=== PATIENT | female | born 1995 | race African-American/Black ===

== ENCOUNTER 2017-07-14 09:03 | Emergency (ER) | payer OTHER ==
[2017-07-14 09:53] LABS: Urine Blood 2+ (NEG); Urine Glucose NEGATIVE (NEG); Urine Protein NEGATIVE (NEG)
[2017-07-14 09:58] LABS: BUN Blood Urea Nitrogen 8 mg/dL (6-20); Bicarbonate 24 mEq/L (21-31); Glucose Level 89 mg/dL (65-120); Potassium 3.5 mEq/L (3.6-5.0); Sodium Level 134 mEq/L (135-145)
[2017-07-14 09:59] LABS: Absolute Lymphocytes (CBC) 2.1 K/uL (0.7-4.9); Absolute Monocytes 0.4 K/uL (0.1-1.3); Absolute Neutrophil 6.2 K/uL (1.8-8.0); Basophils % 0.2 % (0-1.3); Eosinophils % 0.8 % (0-4.4); Hematocrit 39.1 % (36.0-45.0); Lymphocytes % 24.1 % (15.3-44.8); MCV 90.5 fL (80-100); MPV 10.6 fL (7.6-11.3); Monocytes % 4.7 % (3.3-12.3); RBC Red Blood Cell Count 4.32 M/uL (3.86-4.86)
--- NOTE | 2017-07-14 10:57 | ER ---
Nurse's Notes [facility] Name: Vinita Lomeli Age: 22 yrs Sex: Female : 1995 Arrival Date: 07/14/2017 Time: 09:06 Bed 15 Private MD: Diagnosis: Threatened Presentation: 07/14 09:37 Presenting complaint: Patient states: Patient states she has hx of miscarrying and is ae1 now reporting dark brown vaginal bleeding, mostly upon wiping. Transition of care: patient was not received from another setting of care. Onset of symptoms was July 14, 2017 at 09:00. Care prior to arrival: None. 09:37 Acuity: TORITO 3 ae1 09:37 Method Of Arrival: Ambulatory ae1 11:53 Initial Sepsis Screen: Does the patient meet any 2 criteria? No. Patient's initial iw sepsis screen is negative. Does the patient have a suspected source of infection? No. Patient's initial sepsis screen is negative. Triage Assessment: 09:41 General: Appears in no apparent distress. comfortable, well groomed. General: Behavior ae1 is calm, cooperative. Pain: Denies pain. Respiratory: Airway is patent Respiratory effort is even, unlabored, Respiratory pattern is regular, symmetrical. : Reports vaginal bleeding that is brown, Upon wiping. 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 - Social history:: Smoking status: Patient/guardian denies using tobacco. Screenin:40 Abuse screen: Denies threats or abuse. Nutritional screening: No deficits noted. ae1 Tuberculosis screening: No symptoms or risk factors identified. Fall Risk None identified. 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 ae1 11:53 Obstetrical Assessment: General assessment: awake and alert, skin warm and dry. iw Reassessment: Patient appears in no apparent distress at this time. Patient and/or family updated on plan of care and expected duration. Pain level reassessed. Patient is alert, oriented x 3, equal unlabored respirations, skin warm/dry/pink. Patient states feeling better. Patient states symptoms have improved. Vital Signs: 09:26 BP 118 / 63; Pulse 89; Resp 18; Temp 99.2(O); Pulse Ox 100% on R/A; Weight 89.81 kg ae1 (R); Pain 0/10; 10:07 BP 100 / 64; Pulse 81; Resp 16; Pulse Ox 98% on R/A; ae1 Vitals: 11:53 Heart Tones n/a. iw ED Course: 09:06 Patient arrived in ED. rg4 09:09 Salvatore Kincaid RN is Primary Nurse. ae1 09:10 Claude Romeo PA is PHCP. jr8 09:10 Baldo Garvey MD is Attending Physician. jr8 09:27 Inserted saline lock: 20 gauge in right antecubital area, using aseptic technique. ae1 Blood collected. 09:39 Triage completed. ae1 09:39 Arm band placed on right wrist. ae1 09:40 Placed in gown. Bed in low position. Call light in reach. Side rails up X 1. Pulse ox ae1 on. NIBP on. Warm blanket given. 10:11 Note: us done portable. hr 10:13 US Transvaginal Ob In Process Unspecified. EDMS 11:53 No provider procedures requiring assistance completed. IV discontinued, intact, iw bleeding controlled, No redness/swelling at site. Pressure dressing applied. Administered Medications: No medications were administered Point of Care Testing: Urine : 10:07 hCG Reading: Positive; ae1 Outcome: 10:56 Discharge ordered by . randolph 11:53 Discharged to home ambulatory. iw 11:53 Condition: good 11:53 Discharge instructions given to patient, Instructed on discharge instructions, follow up and referral plans. Demonstrated understanding of instructions, follow-up care. 11:54 Patient left the ED. iw Signatures: Dispatcher [employer] EDMS Simran Wang hr Maribel Becker RN RN Claude Romeo PA PA jrSalvatore Omalley RN RN ae1 Mica Martin rg4
--- NOTE | 2017-07-14 10:57 | EDPHYS ---
Physician Documentation [facility] Name: Vinita Lomeli Age: 22 yrs Sex: Female : 1995 Arrival Date: 07/14/2017 Time: 09:06 Bed 15 Private MD: ED Physician Baldo Garvey HPI: 07/14 09:29 This 22 yrs old Black Female presents to ER via Unassigned with complaints of Vaginal jr8 Bleeding, + Preg <12wks. 09:29 The patient presents to the emergency department with vaginal bleeding, that is light, jr8 with clots. The estimated gestational age is 10 weeks. course: care: private OB physician. Previous pregnancies: in previous pregnancies patient has had. Associated signs and symptoms: The patient has no apparent associated signs or symptoms. The patient has experienced similar episodes in the past, a few times. The patient has not recently seen a physician. Stated that she started with light spotting yesterday. Today had heavier bleeding with clots. History of spontaneous in past . 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 - Social history:: Smoking status: Patient/guardian denies using tobacco. ROS: 09:29 Eyes: Negative for injury, pain, redness, and discharge, ENT: Negative for injury, jr8 pain, and discharge, Neck: Negative for injury, pain, and swelling, Cardiovascular: Negative for chest pain, palpitations, and edema, Respiratory: Negative for shortness of breath, cough, wheezing, and pleuritic chest pain, Abdomen/GI: Negative for abdominal pain, nausea, vomiting, diarrhea, and constipation, Back: Negative for injury and pain, MS/Extremity: Negative for injury and deformity, Skin: Negative for injury, rash, and discoloration, Neuro: Negative for headache, weakness, numbness, tingling, and seizure. 09:29 : Positive for vaginal bleeding, Negative for urinary symptoms, pelvic pain, vaginal discharge, vaginal itching. Exam: :29 Eyes: Pupils equal round and reactive to light, extra-ocular motions intact. Lids and jr8 lashes normal. Conjunctiva and sclera are non-icteric and not injected. Cornea within normal limits. Periorbital areas with no swelling, redness, or edema. ENT: Nares patent. No nasal discharge, no septal abnormalities noted. Tympanic membranes are normal and external auditory canals are clear. Oropharynx with no redness, swelling, or masses, exudates, or evidence of obstruction, uvula midline. Mucous membranes moist. Neck: Trachea midline, no thyromegaly or masses palpated, and no cervical lymphadenopathy. Supple, full range of motion without nuchal rigidity, or vertebral point tenderness. No Meningismus. Cardiovascular: Regular rate and rhythm with a normal S1 and S2. No gallops, murmurs, or rubs. Normal PMI, no JVD. No pulse deficits. Respiratory: Lungs have equal breath sounds bilaterally, clear to auscultation and percussion. No rales, rhonchi or wheezes noted. No increased work of breathing, no retractions or nasal flaring. Abdomen/GI: Soft, non-tender, with normal bowel sounds. No distension or tympany. No guarding or rebound. No evidence of tenderness throughout. Back: No spinal tenderness. No costovertebral tenderness. Full range of motion. Skin: Warm, dry with normal turgor. Normal color with no rashes, no lesions, and no evidence of cellulitis. MS/ Extremity: Pulses equal, no cyanosis. Neurovascular intact. Full, normal range of motion. Neuro: Awake and alert, GCS 15, oriented to person, place, time, and situation. Cranial nerves II-XII grossly intact. Motor strength 5/5 in all extremities. Sensory grossly intact. Cerebellar exam normal. Normal gait. Vital Signs: 09:26 BP 118 / 63; Pulse 89; Resp 18; Temp 99.2(O); Pulse Ox 100% on R/A; Weight 89.81 kg ae1 (R); Pain 0/10; 10:07 BP 100 / 64; Pulse 81; Resp 16; Pulse Ox 98% on R/A; ae1 MDM: 09:10 Patient medically screened. [facility] 10:55 Data reviewed: vital signs, nurses notes, lab test result(s), radiologic studies, 8 ultrasound, and as a result, I will discharge patient. Data interpreted: Pulse oximetry: on room air is 98 %. Interpretation: normal. Counseling: I had a detailed discussion with the patient and/or guardian regarding: the historical points, exam findings, and any diagnostic results supporting the discharge/admit diagnosis, lab results, radiology results, the need for outpatient follow up, an OB/Gyne specialist, to return to the emergency department if symptoms worsen or persist or if there are any questions or concerns that arise at home. 07/14 09:18 Order name: Quantitative Hcg; Complete Time: 10:47 07/14 09:18 Order name: Abo/rh Typing; Complete Time: 10:23 07/14 09:18 Order name: Basic Metabolic Panel; Complete Time: 10:47 [facility] 07/14 09:18 Order name: CBC with Diff; Complete Time: 10:16 07/14 09:43 Order name: Urine Dipstick--Ancillary (enter results); Complete Time: 10:08 07/14 09:43 Order name: Urine --Ancillary (enter results); Complete Time: 10:08 07/14 09:18 Order name: Urine Test (obtain specimen); Complete Time: 09:35 [facility] 07/14 09:18 Order name: IV Saline Lock; Complete Time: 09:35 [facility] 07/14 09:18 Order name: Labs collected and sent; Complete Time: 09:35 07/14 09:18 Order name: NPO; Complete Time: :35 07/14 09:18 Order name: Urine Dipstick-Ancillary (obtain specimen); Complete Time: :35 07/14 09:18 Order name: US Transvaginal Ob [facility] Administered Medications: No medications were administered Point of Care Testing: Urine : 10:07 hCG Reading: Positive; ae1 Disposition: 18:58 Co-signature as Attending Physician, Baldo Garvey MD. Disposition: 07/14/17 10:56 Discharged to Home. Impression: Threatened . - Condition is Stable. - Discharge Instructions: Threatened Miscarriage, Pelvic Rest. - Medication Reconciliation Form, Thank You Letter, Antibiotic Education, Prescription Opioid Use, Work release form form. - Follow up: Private Physician; When: 1 - 2 days; Reason: Recheck today's complaints, Continuance of care, Re-evaluation by your physician. - Problem is new. - Symptoms have improved. Signatures: Dispatcher [employer] Maribel Reagan RN RN iw Roszak, Josh, PA PA jr8 Salvatore Kincaid RN RN ae1 Baldo Garvey MD MD
--- NOTE | 2017-07-14 14:53 | RAD REPORT ---
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 COMPARISON: July 01 FINDINGS: Single intrauterine gestation is identified. 182 BPM. [place]-rump length corresponds to a 1 0 week 4 day age. Calculated WOOD is 02/05/2018. There has been appropriate interval growth since the prior examination. A 3.6 centimeter subchorionic hemorrhage is present. This can be monitored on subsequent imaging. Cer vical canal appears closed. No suspicious ovarian or adnexal finding. IMPRESSION: Single 10 week 4 day IUP. Heart rate is 182 BPM. WOOD is 02/05/2018 with appropriate grow th since the July 01 study. A 3.6 centimeter subchorionic hemorrhages present. This is probably not significant at this size but can be monitored on subsequent imaging. Cervical canal appears closed.
== END 2017-07-14 11:54 | disposition home or self-care (01) ==
LOC: ER 09:03
DX: O20.0 Threatened abortion (principal); Z3A.10 10 weeks gestation of pregnancy
CPT/HCPCS: 36415; 76817; 80048; 81003; 81025; 84702; 85025; 86900; 86901; 99284

== ENCOUNTER 2017-11-25 15:10 | Emergency (ER) | payer OTHER ==
--- NOTE | 2017-11-25 16:37 | EDPHYS ---
Physician Documentation [facility] Name: Vinita Lomeli Age: 22 yrs Sex: Female : 1995 Arrival Date: 11/25/2017 Time: 15:14 Bed 16 Private MD: ED Physician Oracio Cedeno HPI: 11/25 16:33 This 22 yrs old Black Female presents to ER via Ambulatory with complaints of Cough, jr8 Shortness Of Breath. 16:33 The patient or guardian reports cough, that is intermittent, described as mild, with no jr8 sputum. Onset: The symptoms/episode began/occurred gradually, 2 day(s) ago. Severity of symptoms: At their worst the symptoms were mild, in the emergency department the symptoms are unchanged. Modifying factors: The symptoms are alleviated by nothing, the symptoms are aggravated by nothing. Associated signs and symptoms: Pertinent positives: sore throat, post nasal driping. The patient has experienced a previous episode. The patient has not recently seen a physician. 30 weeks . 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 - Social history:: Smoking status: Patient/guardian denies using tobacco. - Ebola Screening: : No symptoms or risks identified at this time. ROS: 16:33 Eyes: Negative for injury, pain, redness, and discharge, Neck: Negative for injury, jr8 pain, and swelling, Cardiovascular: Negative for chest pain, palpitations, and edema, Abdomen/GI: Negative for abdominal pain, nausea, vomiting, diarrhea, and constipation, Back: Negative for injury and pain, MS/Extremity: Negative for injury and deformity, Skin: Negative for injury, rash, and discoloration, Neuro: Negative for headache, weakness, numbness, tingling, and seizure. 16:33 ENT: Positive for rhinorrhea, sore throat, Negative for drainage from ear(s), ear pain, sinus congestion, difficulty swallowing, difficulty handling secretions, hoarseness. 16:33 Respiratory: Positive for cough, shortness of breath, Negative for dyspnea on exertion, sputum production, wheezing. Exam: 16:33 Eyes: Pupils equal round and reactive to light, extra-ocular motions intact. Lids and jr8 lashes normal. Conjunctiva and sclera are non-icteric and not injected. Cornea within normal limits. Periorbital areas with no swelling, redness, or edema. ENT: Nares patent. No nasal discharge, no septal abnormalities noted. Tympanic membranes are normal and external auditory canals are clear. Oropharynx with no redness, swelling, or masses, exudates, or evidence of obstruction, uvula midline. Mucous membranes moist. Neck: Trachea midline, no thyromegaly or masses palpated, and no cervical lymphadenopathy. Supple, full range of motion without nuchal rigidity, or vertebral point tenderness. No Meningismus. Cardiovascular: Regular rate and rhythm with a normal S1 and S2. No gallops, murmurs, or rubs. Normal PMI, no JVD. No pulse deficits. Respiratory: Lungs have equal breath sounds bilaterally, clear to auscultation and percussion. No rales, rhonchi or wheezes noted. No increased work of breathing, no retractions or nasal flaring. Abdomen/GI: Soft, non-tender, with normal bowel sounds. No distension or tympany. No guarding or rebound. No evidence of tenderness throughout. Back: No spinal tenderness. No costovertebral tenderness. Full range of motion. Skin: Warm, dry with normal turgor. Normal color with no rashes, no lesions, and no evidence of cellulitis. MS/ Extremity: Pulses equal, no cyanosis. Neurovascular intact. Full, normal range of motion. Neuro: Awake and alert, GCS 15, oriented to person, place, time, and situation. Cranial nerves II-XII grossly intact. Motor strength 5/5 in all extremities. Sensory grossly intact. Cerebellar exam normal. Normal gait. Vital Signs: 15:21 BP 134 / 64; Pulse 99; Resp 16 S; Temp 97.8(TE); Pulse Ox 98% on R/A; Weight 101.15 kg aa5 (R); Height 5 ft. 4 in. (162.56 cm) (R); Pain 0/10; 15:55 BP 128 / 87; Pulse 103; Resp 18; Pulse Ox 96% on R/A; hj 15:21 Body Mass Index 38.28 (101.15 kg, 162.56 cm) aa5 MDM: 15:42 Patient medically screened. jr8 16:33 Data reviewed: vital signs, nurses notes, and as a result, I will discharge patient. jr8 Data interpreted: Pulse oximetry: on room air is 96 %. Interpretation: normal. Counseling: I had a detailed discussion with the patient and/or guardian regarding: the historical points, exam findings, and any diagnostic results supporting the discharge/admit diagnosis, the need for outpatient follow up, an OB/Gyne specialist, to return to the emergency department if symptoms worsen or persist or if there are any questions or concerns that arise at home. ED course: Detailed discussion with patient that there are no signs of bacterial infection at this time. Discussed with her what she can take OTC [place] while being . To f/u with OB. Patient good with this and will f/u . Administered Medications: No medications were administered Disposition: 17:40 Co-signature as Attending Physician, Oracio Cedeno MD. rn Disposition: 11/25/17 16:36 Discharged to Home. Impression: Cough. - Condition is Stable. - Discharge Instructions: Cool Mist Vaporizer, Cough, Adult. - Medication Reconciliation Form, Thank You Letter, Antibiotic Education, Prescription Opioid Use, Work release form form. - Follow up: Private Physician; When: 5 - 6 days; Reason: Recheck today's complaints, Continuance of care, Re-evaluation by your physician. - Problem is new. - Symptoms have improved. - Notes: Robutusin Chloroseptic spray Claritin Flonase Signatures: Oracio Cedeno MD MD rn Calderon, Audri RN RN aa5 Claude Romeo PA PA jr8 Mike Marino RN RN hj Corrections: (The following items were deleted from the chart) 16:50 16:36 11/25/2017 16:36 Discharged to Home. Impression: Cough. Condition is Stable. hj Forms are Medication Reconciliation Form, Thank You Letter, Antibiotic Education, Prescription Opioid Use. Follow up: Private Physician; When: 5 - 6 days; Reason: Recheck today's complaints, Continuance of care, Re-evaluation by your physician. Problem is new. Symptoms have improved. jr8
--- NOTE | 2017-11-25 16:37 | ER ---
Nurse's Notes [facility] Name: Vinita Lomeli Age: 22 yrs Sex: Female : 1995 Arrival Date: 11/25/2017 Time: 15:14 Bed 16 Private MD: Diagnosis: Cough Presentation: 11/25 15:19 Presenting complaint: Patient states: cough, SOB, congestion that began 2-3 days ago. aa5 Pt reports being approximately 29 weeks . Transition of care: patient was not received from another setting of care. Onset of symptoms was November 2017. Risk Assessment: Do you want to hurt yourself or someone else? Patient reports no desire to harm self or others. Initial Sepsis Screen: Does the patient meet any 2 criteria? No. Patient's initial sepsis screen is negative. Does the patient have a suspected source of infection? No. Patient's initial sepsis screen is negative. Care prior to arrival: None. 15:19 Method Of Arrival: Ambulatory aa5 15:19 Acuity: TORITO 3 aa5 Triage Assessment: 15:50 General: Appears in no apparent distress. uncomfortable, Behavior is calm, cooperative, hj appropriate for age. Respiratory: Reports shortness of breath since 2-3 days; Onset: The symptoms/episode began/occurred 2-3 days ago;, the patient has mild shortness of breath. 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 - Social history:: Smoking status: Patient/guardian denies using tobacco. - Ebola Screening: : No symptoms or risks identified at this time. Screenin:20 Abuse screen: Denies threats or abuse. Denies injuries from another. Nutritional hj screening: No deficits noted. Tuberculosis screening: No symptoms or risk factors identified. Fall Risk None identified. Assessment: 15:20 Pain: Denies pain. Cardiovascular: Rhythm is regular. Respiratory: Airway is patent hj Respiratory effort is even, unlabored, Respiratory pattern is regular, symmetrical, Breath sounds are clear. Vital Signs: 15:21 BP 134 / 64; Pulse 99; Resp 16 S; Temp 97.8(TE); Pulse Ox 98% on R/A; Weight 101.15 kg aa5 (R); Height 5 ft. 4 in. (162.56 cm) (R); Pain 0/10; 15:55 BP 128 / 87; Pulse 103; Resp 18; Pulse Ox 96% on R/A; hj 15:21 Body Mass Index 38.28 (101.15 kg, 162.56 cm) aa5 ED Course: 15:14 Patient arrived in ED. mr 15:20 Triage completed. aa5 15:20 Arm band placed on. aa5 15:20 Patient has correct armband on for positive identification. Placed in gown. Bed in low hj position. Call light in reach. Side rails up X 1. Adult w/ patient. 15:41 Claude Romeo PA is PHCP. jr8 15:41 Oracio Cedeno MD is Attending Physician. [facility] 15:49 Mike Marino RN is Primary Nurse. hj 16:49 No provider procedures requiring assistance completed. Patient did not have IV access hj during this emergency room visit. Administered Medications: No medications were administered Outcome: 16:36 Discharge ordered by . jr8 16:49 Discharged to home ambulatory. hj 16:49 Condition: stable 16:49 Discharge instructions given to patient, Instructed on discharge instructions, follow up and referral plans. Demonstrated understanding of instructions, follow-up care. 16:50 Patient left the ED. hj Signatures: Tegan Portillo mr AlcazarJocelin RN RN [facility] Claude Romeo PA PA [facility] Mike Marino RN RN
== END 2017-11-25 16:50 | disposition home or self-care (01) ==
LOC: ER 15:10
DX: R05 Cough (principal); Z3A.30 30 weeks gestation of pregnancy
CPT/HCPCS: 99281

== ENCOUNTER 2018-02-03 05:03 | Inpatient (IN) | payer OTHER ==
[~2018-02-03 05:03] MED LIST: OXYTOCIN/LR 20 UNIT/1,000 ML BAG IV SCH; Ringers Lactate 1,000 ML IV PRN; Ringers Lactate 1,000 ML IV SCH
[2018-02-03] MEDS ORDERED: ROPIVACAINE HCL 100 ML IV PRN (05:11)
[2018-02-03] MEDS ORDERED: FENTANYL CITR 100 MCG/2 ML IV ONE (05:11)
[2018-02-03] MEDS ORDERED: ROPIVACAINE HCL 2 MG/ML 100ML IV ONE (05:12)
[2018-02-03 05:39] LABS: RPR Titer ND
[2018-02-03 05:43] LABS: Absolute Lymphocytes (CBC) 1.7 K/uL (0.7-4.9); Absolute Monocytes 0.6 K/uL (0.1-1.3); Absolute Neutrophil 8.9 K/uL (1.8-8.0); Basophils % 4.2 % (0-1.3); Eosinophils % 0.8 % (0-4.4); Lymphocytes % 14.8 % (15.3-44.8); MPV 11.4 fL (7.6-11.3); Monocytes % 4.7 % (3.3-12.3); RBC Red Blood Cell Count 4.28 M/uL (3.86-4.86)
[2018-02-03] MEDS ORDERED: ROPIVACAINE HCL 0 ML ONE (05:46)
[2018-02-03] MEDS ORDERED: LIDOCAINE 2% INJ, 20 mL 20 ML ONE (06:01)
[2018-02-03] MEDS ORDERED: METHYLERGONOVINE 0.2MG/ML AMP IM ONE (06:01)
[2018-02-03 06:06] LABS: Urine Appearance CLEAR; Urine Bilirubin NEGATIVE (NEG); Urine Blood TRACE (NEG); Urine Color YELLOW; Urine Glucose NEGATIVE (NEG); Urine Protein NEGATIVE (NEG); Urine Specific Gravity 1.025 (1.005-1.030); Urine Urobilinogen 0.2 mg/dL (0.2-1.0); Urine pH 6.5 (5.0-7.0)
[2018-02-03 06:07] LABS: Urine Microscopic Reflex ORDER UMIC
[2018-02-03 06:14] LABS: Urine Bacteria >50 /HPF (<20); Urine Culture Reflex Order REFLEXED; Urine RBC <5 /HPF (NONE SEEN)
[2018-02-03] MEDS ORDERED: ONDANSETRON 4 MG (ODT) TAB PO PRN (06:41)
[2018-02-03] MEDS ORDERED: Oxycodone HCl/Acetaminophen 1 TAB TAB PO PRN (06:41)
[2018-02-03] MEDS ORDERED: ACETAMINOPHEN 500 MG TAB PO PRN (06:41)
[2018-02-03] MEDS ORDERED: BISACODYL 10 MG RECTAL SUPP RECT PRN (06:41)
[2018-02-03] MEDS ORDERED: METHYLERGONOVINE 0.2 MG TAB PO PRN (06:41)
[2018-02-03] MEDS ORDERED: DOCUSATE NA/SENNA CONC 1 TAB PO PRN (06:41)
[2018-02-03 08:03] LABS: Blood Morphology Comment NOT SEEN (NOT SEEN); Platelet Estimate ADEQ; Urine White Blood Cell Casts OK
[2018-02-03 08:17] VITALS: BMI 37.8
--- NOTE | 2018-02-03 12:45 | P.OBGYNHP ---
Certification for Inpatient Patient admitted to: Inpatient With expected LOS: <2 Midnights Patient will require the following post-hospital care: None Practitioner: I am a practitioner with admitting privileges, knowledge of patient current condition, hospital course, and medical plan of care. Services: Services provided to patient in accordance with Admission requirements found in Title 42 Section 412.3 of the Code of Federal Regulations Patient History Date of Service: 02/23/18 Reason for admission: LABOR History of Present Illness: Patient is a 22 y/o at 39 weeks and 2 days gestation who presents to labor and delivery in active labor. Patient was scheduled for induction of labor today but now presents in active labor. She is 4 cm dilated 70% effaced - 2 station and has had spontaneous rupture of membranes. She is GBS negative. She has obtained care in my office first with Dr. Mcdaniel and then with me. She has been compliant with visits. care has been uncomplicated. The FOB is involved with her and helping her. See records for further details. Allergies No Known Allergies Allergy (Verified 02/03/18 08:05) Home Medications: Pnv73/Iron,Carb&Glu/FA/Dss/Dha [Citranatal Assure Combo Pack] 1 each PO DAILY - Past Medical/Surgical History Diabetic: No Past Medical History: Reviewed- Non-Contributory Past Surgical History: Patient denies surgical history - Family History Family History: Reviewed- Non-Contributory - Social History Smoking Status: Never smoker Alcohol use: No CD- Drugs: No Caffeine use: No Place of Residence: Home Review of Systems 10-point ROS is otherwise unremarkable Physical Examination - Vital Signs Temperature: 97.7 F Blood Pressure: 114/71 Pulse: 95 Respirations: 18 - General General: Alert, Oriented x3, Moderate distress HEENT: Atraumatic Neck: Supple Respiratory: Normal air movement Cardiovascular: No edema Breasts: Normal configuration Gastrointestinal: Other (Gravid) Musculoskeletal: No clubbing, No swelling Integumentary: No rashes, No breakdown Neurological: Normal gait, Normal speech - Female Pelvic External genitalia: Normal Vagina: [place], Moist Cervix: Dilation (4cm), Effacement (70%), station (-2) Uterus: Gravid - Obstetrics heart rate tracing: Category 2 Amniotic membrane: SROM Laboratory Data (last 24 hrs) 02/03/18 05:08: WBC 11.8 H D, Hgb 13.5, Hct 40.0, Plt Count 163 Assessment and Plan - Plan Patient is a 22 y/o at 39 weeks and 2 days gestation who presents to labor and delivery in active labor. - Admit - Pain management - Continuous /maternal monitoring - Routine intrapartum care Discharge Plan: Home Plan to discharge in: 48 Hours - Advance Directives Does patient have a Living Will: No Does patient have a Durable POA for Healthcare: No
--- NOTE | 2018-02-03 12:46 | P.OP ---
Date of Service: 02/03/18 Findings and Operative Technique Patient delivered a viable female in cephalic presentation on 02/03/18 at 06:07 AM. Infant was delivered without difficulty. Once delivered the nose and mouth were suctioned with a suction bulb. The cord was clamped and cut and the was placed on the mother's abdomen for skin to skin bonding. Attention was then turned to the placenta which was delivered with gentle traction at 06:11. Attention was then turned to the perineum which was noted to have a 2nd degree laceration. This was reparied with a 2.0 vicryl. EBL was 300cc. APGARS were 9/10. Weight was found to be 6 lb 10 ounces. First stage of labor was noted to be 1 hour and 12 minutes. Second stage was 7 minutes. Both mom and baby are doing well. Regular diet. Ambulation encouraged. Pain management will be provided.
[2018-02-03] MEDS: IBUPROFEN 200 MG TAB PO PRN (17:20)
[2018-02-04] MEDS: IBUPROFEN 200 MG TAB PO PRN (01:16)
[2018-02-04 02:37] LABS: RPR (Rapid Plasma Reagin) NON-REACT (NON-REACT)
[2018-02-07 03:14] LABS: HBsAG Nonreactive (Nonreactive)
[2018-02-16 22:28] VITALS: BP 114/71; TEMP 97.7
--- NOTE | 2018-02-23 22:35 | P.DS ---
Admission Date: 02/03/18 Discharge Date: 02/04/18 Disposition: ROUTINE DISCHARGE Discharge Condition: GOOD Reason for Admission: LABOR Brief History of Present Illness: Patient is a 22 y/o at 39 weeks and 2 days gestation who presents to labor and delivery in active labor. Patient was scheduled for induction of labor today but now presents in active labor. She is 4 cm dilated 70% effaced - 2 station and has had spontaneous rupture of membranes. She is GBS negative. She has obtained care in my office first with Dr. Mcdaniel and then with me. She has been compliant with visits. care has been uncomplicated. The FOB is involved with her and helping her. See records for further details. Hospital Course: Patient did well following delivery of the . She has been bonding well with the baby. She is voiding without difficulty. She is ambulating well. She is tolerating a regular diet. No fever or chills. Pain is well controlled. Vital Signs/Physical Exam: Temp Pulse Resp BP Pulse Ox 97.7 F 95 H 18 114/71 02/23/18 22:26 02/23/18 22:26 02/23/18 22:26 02/23/18 22:26 General: Alert, In no apparent distress HEENT: Atraumatic Neck: Supple Respiratory: Normal air movement Cardiovascular: No edema, Normal pulses Integumentary: No rashes, No breakdown Neurological: Normal gait, Normal speech External genitalia: No edema Laboratory Data at Discharge: WBC 11.8 K/uL (4.3-10.9) H D 02/03/18 05:08 Hgb 13.5 g/dL (12.0-15.0) 02/03/18 05:08 Hct 31.8 % (36.0-45.0) L D 02/03/18 23:59 Plt Count 163 K/uL (152-406) 02/03/18 05:08 Home Medications: Pnv73/Iron,Carb&Glu/FA/Dss/Dha [Citranatal Assure Combo Pack] 1 each PO DAILY Diet: Regular Activity: No lifting more than 10 lbs Followup: Clayton Theodore DO [ACTIVE - CAN ADMIT] - (Follow up care with Dr. Theodore in 6 weeks for post visit. [phone])
== END 2018-02-04 09:29 | disposition home or self-care (01) | DRG 807 ==
LOC: 2ND-WC 05:03
PROVIDERS: ADMIT Student in an Organized Health Care Education/Training Program; ATTEND Student in an Organized Health Care Education/Training Program
PROC: 10E0XZZ Delivery of Products of Conception, External Approach (ICD-10-PCS; principal; 2018-02-03)
PROC: 0KQM0ZZ Repair Perineum Muscle, Open Approach (ICD-10-PCS; 2018-02-03)
DX: O70.1 Second degree perineal laceration during delivery (principal); Z37.0 Single live birth; Z3A.39 39 weeks gestation of pregnancy
CPT/HCPCS: 36415; 81003; 81015; 85014; 85025; 86592; 86901; 87086; 87088; 87340; 99218; J2210; J2590; J2795; J3010